=== PATIENT | female | born 1930 | race Caucasian/White ===

== ENCOUNTER 2016-08-09 21:14 | Emergency (ER) | payer OTHER, MEDICARE ==
[2016-08-09 21:37] VITALS: BP 193/104; PULSE 80; TEMP 97; BMI 27.9
--- NOTE | 2016-08-09 21:55 | PDOC ---
History of Present Illness - General Chief Complaint: Injury Stated Complaint: TRIPPED AND FELL BACKWARDS HITTING HEAD Time Seen by Provider: 08/09/16 21:16 - History of Present Illness Initial Comments: This 86-year-old woman with a history of COPD/atrial fibrillation (not on anticoagulation)/hypertension presents with a history of head injury. Patient was climbing down small step stool in her home just prior to presentation and fell backwards when she lost her balance one step up from floor. She struck the back of her head against the floor. There was no loss of consciousness. She denies headache/neck pain/chest pain/lower back pain. Patient has been able to walk without difficulty since the injury and denies hip/lower back pain. Patient states that she had no significant amount of bleeding from the head wound prior to presentation. She denies lightheadedness/significant headache/nausea/vomiting. Past History - Past Medical History Allergies/Adverse Reactions: Allergies Allergy/AdvReac Type Severity Reaction Status Date / Time acetaminophen [From Vicodin] Allergy Verified 08/09/16 21:16 hydrocodone bitartrate Allergy Verified 08/09/16 21:16 [From Vicodin] nitrofurantoin Allergy Verified 08/09/16 21:17 macrocrystalline [From Macrodantin] quinapril HCl [From Accupril] Allergy Verified 08/09/16 21:16 Home Medications: Ambulatory Orders Budesonide/Formeterol Fumarate [SYMBICORT 160/4.5mcg -] 1 inh PO DAILY 08/09/16 Diltiazem [Cardizem -] 360 mg PO DAILY 08/09/16 Cardiac Disorders: Yes (A-FIB) COPD: Yes - Immunization History Td Vaccination: No - Psycho/Social/Smoking Cessation Hx Anxiety: No Suicidal Ideation: No Smoking History: Never smoked Have you smoked in the past 12 months: No Information on smoking cessation initiated: No Hx Alcohol Use: No Drug/Substance Use Hx: No Substance Use Type: None Review of Systems - Review of Systems Able to Perform ROS?: Yes Comments:: 12 point review of systems is negative except for what is noted in the history of present illness *Physical Exam - Vital Signs Last Vital Signs Temp Pulse Resp BP Pulse Ox 97 F L 80 16 193/104 97 08/09/16 21:32 08/09/16 21:32 08/09/16 21:32 08/09/16 21:32 08/09/16 21:32 - Physical Exam Comments: GENERAL: Elderly female, awake, alert, and fully oriented, in no acute distress. Vital signs as noted. HEAD: 1.5 cm by 1 cm nonbleeding abrasion of right parieto-occipital area; no other abrasions/lacerations/contusions No gibson's sign; no hemotympanum. EYES: Pupils 2 mm equal, round and reactive to light, extraocular movements intact, sclera anicteric, conjunctiva clear with no pallor. ENT: moist mucous membranes. Ears normal, nares patent, oropharynx clear without exudates. NECK: Nontender Normal range of motion, supple without lymphadenopathy, JVD, or masses. LUNGS: Breath sounds equal, clear to auscultation bilaterally. No wheeze/ crackles. No chest wall tenderness on palpation HEART: Regular rate and rhythm, normal S1 and S2 without murmur or rub. ABDOMEN: Soft/nontender/nondistended. BS wnl. No guarding or rebound. No palpable masses. No hepatosplenomegaly. EXTREMITIES: Normal range of motion, no edema. No clubbing or cyanosis. No cords, erythema, or tenderness. NEUROLOGICAL: Cranial nerves II through XII grossly intact. No pronator drift; motor 5/5 throughout; Normal speech, normal gait. Finger to nose testing normal bilaterally PSYCH: Normal mood, normal affect. SKIN: Warm, Dry, normal turgor, no rashes or lesions noted. Progress Note - Progress Note Progress Note: As noted above, area around abrasion carefully cleaned using sterile normal saline with a small amount of hair cut around the wound to fully visualize it. No evidence of full thickness laceration with nonbleeding abrasion being present. Area cleansed with sterile normal saline and bacitracin ointment applied to the wound. Because of patient's advanced age, noncontrast head CT performed to evaluate for fracture or intracranial pathology. No evidence of fracture/bleeding/infarct. Edema/wound was noted in the right parietal occipital area. Results discussed with the patient. Patient will be discharged in the company of her with instructions to keep her head elevated on extra pillow tonight. She should not wash her hair or disrupt the area around the wound the next 3 days. She should apply bacitracin to the abrasions twice a day. She should avoid any strenuous activity tomorrow. She should return to the emergency room immediately if she has increase in headache, or if she experiences nausea/vomiting/lightheadedness. *DC/Admit/Observation/Transfer Diagnosis at time of Disposition: Scalp abrasion Qualifiers: Encounter type: initial encounter Qualified Code(s): S00.01XA - Abrasion of scalp, initial encounter - Discharge Dispostion Disposition: HOME Condition at time of disposition: Stable - Patient Instructions Printed Discharge Instructions: Closed Head Injury Additional Instructions: Keep head elevated on extra pillow tonight Neosporin to scalp abrasion twice a day for the next week Avoid strenuous activity for the next 24 hours Tylenol as needed for headache or other pain Return to ER if you have severe headache/nausea/vomiting or lightheadedness See your general doctor (Dr. Jurado) within 1 week
== END 2016-08-09 23:16 | disposition home or self-care (01) ==
LOC: FER 21:14
DX: S00.01XA Abrasion of scalp, initial encounter (principal); W18.39XA Other fall on same level, initial encounter; Y93.89 Activity, other specified; Y92.9 Unspecified place or not applicable; I48.91 Unspecified atrial fibrillation; J44.9 Chronic obstructive pulmonary disease, unspecified
CPT/HCPCS: 70450-TC; 99281-25